=== PATIENT | female | born 1960 | race Caucasian/White ===

== ENCOUNTER 2016-07-20 13:04 | Emergency (ER) | payer OTHER ==
[~2016-07-20] VITALS: Ht 177.8 cm; Wt 86.2 kg
[2016-07-20] MEDS ORDERED: KETOROLAC TROMETHAMINE INJ 30 MG/ML VIAL IV ONE (13:30)
[2016-07-20] MEDS ORDERED: KETOROLAC TROMETHAMINE 15 MG/ML VIAL ONE (13:38)
[2016-07-20 13:40] LABS: BASOPHILS % (AUTO) 0.6 % (0.0-2.0); DIFF TOTAL % 100 %; EOSINOPHILS # (AUTO) 0.3 /CMM (0.0-0.7); EOSINOPHILS % (AUTO) 3.9 % (0.0-6.0); HEMATOCRIT 38 % (33-45); HEMOGLOBIN 12.8 g/dL (11.5-14.8); LYMPHOCYTES # (AUTO) 1.9 /CMM (0.8-4.8); LYMPHOCYTES % (AUTO) 29.6 % (20.0-44.0); MEAN CORPUSCULAR HEMOGLOBIN 30 PG (26.0-33.0); MEAN CORPUSCULAR HGB CONC 34 g/dl (31.0-36.0); MEAN CORPUSCULAR VOLUME 89 fL (82-100); MONOCYTES # (AUTO) 0.5 /CMM (0.1-1.30); MONOCYTES % (AUTO) 7.3 % (2.0-12.0); NEUTROPHILS # (AUTO) 3.8 /CMM (1.8-8.9); NEUTROPHILS % (AUTO) 58.6 % (43.0-81.0); PLATELET COUNT (AUTO) 223 /CMM (150-450); RED BLOOD CELL COUNT(AUTO) 4.26 MIL/uL (4.0-5.2); WHITE BLOOD COUNT (AUTO) 6.5 K/uL (4.3-11.0)
[2016-07-20 13:42] LABS: ADD UA MICROSCOPIC NO; KETONES,URINE NEGATIVE (NEGATIVE); LEUKOCYTE ESTERASE ,URINE NEGATIVE (NEGATIVE); PH,URINE 6.5 (5.0-8.0)
[2016-07-20 13:43] LABS: PREGNANCY TEST URINE QUAL NEGATIVE (NEGATIVE)
[2016-07-20 13:49] LABS: CALCIUM, SERUM 8.1 mg/dL (8.5-10.1); CREATININE 0.9 mg/dL (0.6-1.3); POTASSIUM 4.1 mmol/L (3.5-5.1)
[2016-07-20 13:55] LABS: ALBUMIN 3.5 g/dL (3.4-5.0); BILIRUBIN,DIRECT 0.1 mg/dL (0.0-0.2); BILIRUBIN,TOTAL 0.6 mg/dL (0.2-1.0); INDIRECT BILIRUBIN 0.5 mg/dL (0.0-1.1); TOTAL PROTEIN, SERUM 6.5 g/dL (6.4-8.2)
[2016-07-20 15:17] VITALS: BP 121/68
== END 2016-07-20 15:18 | disposition home or self-care (01) ==
LOC: ER 13:08
DX: R10.12 Left upper quadrant pain (principal); I10 Essential (primary) hypertension; G80.9 Cerebral palsy, unspecified; R16.0 Hepatomegaly, not elsewhere classified
CPT/HCPCS: 36415; 74176; 80048; 80076; 81001; 83690; 84703; 85025; 96374; 99285; A4606; J1885; Z7610; 81000-TC

== ENCOUNTER 2018-09-21 21:18 | Emergency (ER) | payer OTHER ==
[~2018-09-21] VITALS: Ht 177.8 cm; Wt 96.6 kg
--- NOTE | 2018-09-21 21:40 | NUR ---
PT BIBSELF COMPLAINING OF HEADACHE X 4 DAYS. PT RESPIRATIONS EVEN AND UNLABORED. PT AXO4. PT PUT ON SHOCK ABSORPTION FLOOR LAYER AND PULSE OX.
[2018-09-21] MEDS ORDERED: METOCLOPRAMIDE HCL 10 MG/2 ML VIAL ONE (21:47)
[2018-09-21] MEDS ORDERED: DEXAMETHASONE SOD PHOSPHATE 10 MG/ML VIAL ONE (21:47)
[2018-09-21] MEDS ORDERED: diphenhydrAMINE HCL 50 MG/ML VIAL ONE (21:47)
[2018-09-21] MEDS ORDERED: KETOROLAC TROMETHAMINE INJ 30 MG/ML VIAL ONE (21:47)
[2018-09-21] MEDS ORDERED: DEXAMETHASONE SOD PHOSPHATE 4 MG/ML VIAL IV ONE (22:00)
[2018-09-21] MEDS ORDERED: IV NS 0.9% 1,000 ML BAG IV ONE (22:00)
[2018-09-21] MEDS ORDERED: KETOROLAC TROMETHAMINE INJ 30 MG/ML VIAL IV ONE (22:00)
[2018-09-21] MEDS ORDERED: diphenhydrAMINE HCL 50 MG/ML VIAL IV ONE (22:00)
[2018-09-21] MEDS ORDERED: METOCLOPRAMIDE HCL 10 MG/2 ML VIAL IV ONE (22:00)
--- NOTE | 2018-09-21 22:18 | NUR ---
PT RESTING IN BED COMFORTABLY, NAD NOTED. WILL CONTINUE TO MONITOR.
[2018-09-21 23:05] VITALS: BP 134/77
--- NOTE | 2018-09-21 23:05 | NUR ---
Patient discharged to home in stable condition. Written and verbal after care instructions given. Patient verbalizes understanding of instruction. IV removed. Catheter intact and site benign. Pressure and 4x4 applied to site. No bleeding noted.
== END 2018-09-21 23:29 | disposition home or self-care (01) ==
LOC: ER 21:26
DX: R51 Headache (principal); I10 Essential (primary) hypertension; G80.9 Cerebral palsy, unspecified; R26.9 Unspecified abnormalities of gait and mobility
CPT/HCPCS: 96374; 96375; 99283; J1100; J1200; J1885; J2765; J7030

== ENCOUNTER 2018-10-01 23:25 | Emergency (ER) | payer OTHER ==
[~2018-10-01] VITALS: Ht 177.8 cm; Wt 90.7 kg
[2018-10-01 23:33] VITALS: BP 159/84
[2018-10-02] MEDS ORDERED: KETOROLAC TROMETHAMINE INJ 60 MG/2 ML VIAL IM ONE ×2
[2018-10-02] MEDS ORDERED: CARISOPRODOL 350 MG TABLET PO ONE
[2018-10-02] MEDS ORDERED: CARISOPRODOL 350 MG TABLET ONE
[2018-10-02] MEDS ORDERED: DEXAMETHASONE SOD PHOSPHATE 10 MG/ML VIAL ONE
[2018-10-02] MEDS ORDERED: DEXAMETHASONE SOD PHOSPHATE 4 MG/ML VIAL IM ONE
== END 2018-10-02 00:29 | disposition home or self-care (01) ==
LOC: ER 23:28
DX: M54.12 Radiculopathy, cervical region (principal); M62.838 Other muscle spasm; G80.9 Cerebral palsy, unspecified; I10 Essential (primary) hypertension; Z98.890 Other specified postprocedural states
CPT/HCPCS: 96372 ×2; 99283; J1100; J1885

== ENCOUNTER 2019-09-04 20:03 | Emergency (ER) | payer OTHER ==
[~2019-09-04] VITALS: Ht 175.3 cm; Wt 104.3 kg
[2019-09-04 20:07] VITALS: BP 120/83
--- NOTE | 2019-09-04 20:11 | NUR ---
PATIENT CAME TO ER BED 10 C/O RIGHT ANKLE PAIN. PATIENT TWISTED HER RIGHT ANKLE BY EVERSION AROUND 1500 OF TODAY. PAIN AGGRAVATED UPON PLACING WEIGHT ON ANKLES. AAOX4. NO SOB. BREATHING EVENLY AND UNLABORED. Addendum: 09/04/19 at 2027 by SONYA PEDAL PULSES BILATERALLY EQUAL AND STRONG.
--- NOTE | 2019-09-04 20:15 | NUR ---
SEEN AND EXAMINED BY
--- NOTE | 2019-09-04 20:17 | NUR ---
xray at bedside
[2019-09-04] MEDS ORDERED: HYDROCODONE/APAP 5/325MG 1 EACH TABLET ONE (20:59)
[2019-09-04] MEDS ORDERED: HYDROCODONE/APAP 5/325MG 1 EACH TABLET PO ONE (21:00)
--- NOTE | 2019-09-04 21:49 | NUR ---
Patient discharged to home in stable condition. Written and verbal after care instructions given. Patient verbalizes understanding of instruction. Prescipitions given.
== END 2019-09-04 23:02 | disposition home or self-care (01) ==
LOC: ER 20:06
DX: S93.491A Sprain of other ligament of right ankle, initial encounter (principal); I10 Essential (primary) hypertension; Z98.890 Other specified postprocedural states; Z79.899 Other long term (current) drug therapy; X58.XXXA Exposure to other specified factors, initial encounter; Y93.89 Activity, other specified; Y92.89 Other specified places as the place of occurrence of the external cause; Y99.8 Other external cause status
CPT/HCPCS: 73610-TC

== ENCOUNTER 2019-11-28 21:05 | Emergency (ER) | payer OTHER ==
[~2019-11-28] VITALS: Ht 175.3 cm; Wt 90.7 kg
[2019-11-28 22:20] VITALS: BP 162/100
[2019-11-28] MEDS ORDERED: IBUPROFEN 600 MG TABLET PO ONE ×2 (23:21→23:30)
== END 2019-11-29 00:21 | disposition home or self-care (01) ==
LOC: ER 21:05
DX: S93.491A Sprain of other ligament of right ankle, initial encounter (principal); I10 Essential (primary) hypertension; Z98.890 Other specified postprocedural states; X50.1XXA Overexertion from prolonged static or awkward postures, initial encounter; Y93.89 Activity, other specified; Y92.89 Other specified places as the place of occurrence of the external cause; Y99.8 Other external cause status
CPT/HCPCS: 73610-TC

== ENCOUNTER 2019-12-25 15:54 | Emergency (ER) | payer OTHER ==
[~2019-12-25] VITALS: Ht 175.3 cm; Wt 90.7 kg
--- NOTE | 2019-12-25 16:02 | NUR ---
CAME IN FOR BODY ACHE,CHEST CONGESTION AND HEADACHE X 3 DAYS, TO ER BED 8, HOOKED TO MONITOR, CHANGED TO HOSP GOWN, WARM BLANKET PROVIDED, PATIENT AAO x 4, BREATHING EVEN AND UNLABORED. AWAITING MD MENDOZA.
[2019-12-25] MEDS ORDERED: SULF500T8 MT (16:06)
[2019-12-25] MEDS ORDERED: ALBU8.5H8 INH (16:06)
[2019-12-25] MEDS ORDERED: METO-357 MT (16:06)
--- NOTE | 2019-12-25 16:28 | NUR ---
DR CHU AT BEDSIDE FOR EVAL
[2019-12-25 17:04] LABS: EOSINOPHILS % (AUTO) 0.4 % (0.0-6.0); HEMATOCRIT 41 % (33-45); LYMPHOCYTES # (AUTO) 1.1 /CMM (0.8-4.8); LYMPHOCYTES % (AUTO) 24.6 % (20.0-44.0); MEAN CORPUSCULAR HGB CONC 34 g/dl (31.0-36.0); MEAN CORPUSCULAR VOLUME 94 fL (82-100); MONOCYTES # (AUTO) 0.4 /CMM (0.1-1.30); NEUTROPHILS # (AUTO) 2.8 /CMM (1.8-8.9); PLATELET COUNT (AUTO) 167 /CMM (150-450); RED BLOOD CELL COUNT(AUTO) 4.39 MIL/uL (4.0-5.2); WHITE BLOOD COUNT (AUTO) 4.4 K/uL (4.3-11.0)
[2019-12-25 17:16] LABS: CALCIUM, SERUM 8.3 mg/dL (8.5-10.1)
[2019-12-25] MEDS ORDERED: KETOROLAC TROMETHAMINE 15 MG/ML VIAL ONE (17:50)
[2019-12-25] MEDS ORDERED: KETOROLAC TROMETHAMINE INJ 30 MG/ML VIAL IV ONE (18:00)
--- NOTE | 2019-12-25 18:11 | NUR ---
URINE SAMPLE COLLECTED AND SENT TO LAB
[2019-12-25 18:16] LABS: APPEARANCE,URINE Clear (CLEAR); BILIRUBIN,URINE Negative (NEGATIVE); BLOOD, URINE Negative Ery/uL (NEGATIVE); COLOR,URINE Yellow (YELLOW); KETONES,URINE Negative (NEGATIVE); LEUKOCYTE ESTERASE ,URINE Negative (NEGATIVE); NITRITE, URINE Negative (NEGATIVE); PH,URINE 5.5 (5.0-8.0); PROTEIN,URINE Trace mg/dl (NEGATIVE); UGLUCOSE Negative (NEGATIVE); UROBILINOGEN,URINE 0.2 EU/dL (0.2)
[2019-12-25 18:21] LABS: BACTERIA,URINE Few /HPF (None Seen); MUCUS,URINE Moderate /LPF (None Seen); RBC,URINE NONE SEEN /HPF (0-2); SQUAMOUS EPITHELIAL CELL,UR Many /HPF (None Seen); WBC,URINE NONE SEEN /HPF (0-3)
--- NOTE | 2019-12-25 18:22 | NUR ---
IV removed. Catheter intact and site benign. Pressure and 4x4 applied to site. No bleeding noted.Patient discharged to home in stable condition. Written and verbal after care instructions given. Patient verbalizes understanding of instruction.
[2019-12-25 18:23] VITALS: BP 147/74
== END 2019-12-25 18:23 | disposition home or self-care (01) ==
LOC: ER 15:56
DX: U07.1 COVID-19 (principal); G80.9 Cerebral palsy, unspecified; I10 Essential (primary) hypertension; Z79.899 Other long term (current) drug therapy; R35.0 Frequency of micturition; R09.89 Other specified symptoms and signs involving the circulatory and respiratory systems
CPT/HCPCS: 36415; 71045; 80048; 81001; 83880; 84145; 85025; 87040 ×2; 87426; 96374; 99284; J1885; 81000-TC

== ENCOUNTER 2020-08-23 16:03 | Emergency (ER) | payer MEDICAID, OTHER ==
[~2020-08-23] VITALS: Ht 175.3 cm; Wt 88.5 kg
[~2020-08-23 16:03] MED LIST: ALBU8.5H8 INH; METO-357 MT; SULF500T8 MT
[2020-08-23] MEDS ORDERED: HYDROCODONE/APAP 5/325MG TABLET ONE (16:24)
[2020-08-23] MEDS ORDERED: HYDROCODONE/APAP 5/325MG TABLET PO ONE (16:30)
--- NOTE | 2020-08-23 16:30 | NUR ---
BIBS W/ FIANCE FROM HOME TO ER BED 6. AAOX4. NOT IN RESP DISTRESS. AMBULATORY WITH LIMP. CAME IN FOR R KNEE PAAIN. PER PT, SHE WAS GOING THE THE STAIR, SLIPPED OFF AND CAUSING HER TO FALL DOWN HYPERBENDING HER R KNEE. PAIN IS 9/10 NOTED SWELLING. ROM IS LIMITED D/T PAIN. PEDAL PULSE IS APPRECIATED. MD WAS AT THE BEDSIDE FOR EVAL. ORDERS RECEIVED, NOTED AND CARRIED OUT
[2020-08-23] MEDS ORDERED: HYDR-4303 PO (17:15)
--- NOTE | 2020-08-23 17:27 | NUR ---
Patient discharged to home in stable condition. Written and verbal after care instructions given. Patient verbalizes understanding of instruction. Pt discharged with walker. gait training done. pt able to return demonstrate on walker use. Pt was assisted out of ER on a wheelchair
[2020-08-23 17:28] VITALS: BP 123/79
== END 2020-08-23 17:28 | disposition home or self-care (01) ==
LOC: ER 16:06
DX: S83.8X1A Sprain of other specified parts of right knee, initial encounter (principal); I10 Essential (primary) hypertension; F10.10 Alcohol abuse, uncomplicated; Y90.9 Presence of alcohol in blood, level not specified; Z98.890 Other specified postprocedural states; Z79.899 Other long term (current) drug therapy; W10.8XXA Fall (on) (from) other stairs and steps, initial encounter; Y93.89 Activity, other specified; Y92.89 Other specified places as the place of occurrence of the external cause; Y99.8 Other external cause status
CPT/HCPCS: 73562

== ENCOUNTER 2022-02-14 19:15 | Emergency (ER) | payer MEDICAID, OTHER ==
[~2022-02-14] VITALS: Ht 175.3 cm; Wt 93.0 kg
[~2022-02-14 19:15] MED LIST changes: +HYDR-4303 PO
--- NOTE | 2022-02-14 19:21 | NUR ---
supriya from [facility], c/o high blood pressure 190's sbp in triage pt called 911 herself due to concern for high bp. DENIES H/A. PT A/OX4. TOLERATING R/A WELL WITH NO SOB. CONNECTED PT TO POX AND MONITOR. SAFETY MEASURES IN PLACE.
--- NOTE | 2022-02-14 19:30 | NUR ---
RAC #20G S/L BLOOD COLLECTED AND SENT TO LAB
--- NOTE | 2022-02-14 19:49 | NUR ---
URINE COLLECTED AND SENT TO LAB
--- NOTE | 2022-02-14 20:09 | NUR ---
EMT AT PT'S BEDSIDE FOR EKG
[2022-02-14] MEDS ORDERED: HYDROCODONE/APAP 5/325MG TABLET ONE (20:13)
[2022-02-14] MEDS ORDERED: AMLODIPINE BESYLATE 10 MG TABLET ONE (20:13)
[2022-02-14] MEDS ORDERED: AMLODIPINE BESYLATE 5 MG TABLET PO ONE (20:30)
[2022-02-14] MEDS ORDERED: HYDROCODONE/APAP 5/325MG TABLET PO ONE (20:30)
--- NOTE | 2022-02-14 22:32 | NUR ---
PT WILL BE TRANSPORTED BACK TO FACILITY AT 0100 VIA [facility].
[2022-02-14] MEDS ORDERED: CLONIDINE HCL 0.1 MG TABLET ONE (23:09)
[2022-02-14] MEDS ORDERED: CLONIDINE HCL 0.1 MG TABLET PO ONE (23:30)
--- NOTE | 2022-02-15 00:17 | NUR ---
REPORT GIVEN TO VENUS TAYLOR FROM [facility]
[2022-02-15 00:59] VITALS: BP 133/67
--- NOTE | 2022-02-15 01:06 | NUR ---
REPORT GIVEN TO [facility] FOR PT TO D/C TO [facility]. IV removed. Catheter intact and site benign. Pressure and 4x4 applied to site. No bleeding noted. VSS
--- NOTE | 2022-02-15 01:16 | NUR ---
Patient discharged to [facility] in stable condition via [facility]. Written and verbal after care instructions given. Patient verbalizes understanding of instruction.
== END 2022-02-15 01:35 ==
LOC: ER 19:16
DX: I10 Essential (primary) hypertension (principal); Z98.890 Other specified postprocedural states; Z79.899 Other long term (current) drug therapy

== ENCOUNTER 2022-02-15 01:41 | Emergency (ER) | payer OTHER | END 2022-02-15 01:59 | disposition left against medical advice (07) | LOC: ER 01:42 | DX: Z53.21 Procedure and treatment not carried out due to patient leaving prior to being seen by health care provider (principal) ==

== ENCOUNTER 2022-06-27 22:22 | Emergency (ER) | payer OTHER ==
[~2022-06-27] VITALS: Ht 175.3 cm; Wt 90.7 kg
--- NOTE | 2022-06-27 22:57 | NUR ---
SEEN BY DR SCHROEDER AT BEDSIDE
[2022-06-27] MEDS ORDERED: HYDR-4077 PO (23:08)
[2022-06-27] MEDS ORDERED: hydrALAZINE HCL 50 MG TABLET ONE (23:17)
[2022-06-27 23:21] VITALS: BP 162/101
[2022-06-27] MEDS ORDERED: hydrALAZINE HCL 25 MG TABLET PO ONE (23:30)
--- NOTE | 2022-06-27 23:50 | NUR ---
MELANIE CALLED TO [employer] PT [phone]
--- NOTE | 2022-06-28 00:17 | NUR ---
Patient discharged to home in stable condition. Written and verbal after care instructions given. Patient verbalizes understanding of instruction.
--- NOTE | 2022-06-28 00:17 | NUR ---
LATEST BP 144/77mmhg. PATIENT MADE AWARE.
== END 2022-06-28 02:21 | disposition home or self-care (01) ==
LOC: ER 22:23
DX: I10 Essential (primary) hypertension (principal); Z76.0 Encounter for issue of repeat prescription; G80.9 Cerebral palsy, unspecified; Z98.890 Other specified postprocedural states; Z79.899 Other long term (current) drug therapy

== ENCOUNTER 2024-01-15 00:28 | Emergency (ER) | payer OTHER ==
[~2024-01-15] VITALS: Ht 175.3 cm; Wt 95.3 kg
[~2024-01-15 00:28] MED LIST changes: +HYDR-4077 PO
[2024-01-15 02:13] VITALS: O2SAT 96
[2024-01-15] MEDS ORDERED: IBUP-1957 PO (02:18)
[2024-01-15] MEDS ORDERED: CYCL15CA23 PO (02:18)
[2024-01-15] MEDS ORDERED: PRED50TA PO (02:18)
[2024-01-15] MEDS ORDERED: IBUPROFEN 400 MG TABLET ONE (02:19)
[2024-01-15] MEDS ORDERED: dexaMETHasone SOD PHOSPHATE 1 ML ONE (02:19)
[2024-01-15] MEDS: dexaMETHasone SOD PHOSPHATE 4 MG/ML VIAL IM ONE (02:25)
[2024-01-15 02:26] VITALS: BP 108/66; TEMP 98; O2SAT 96
[2024-01-15] MEDS: IBUPROFEN 400 MG TABLET PO ONE (02:26)
== END 2024-01-15 02:27 | disposition home or self-care (01) ==
LOC: ER 00:30
DX: M54.41 Lumbago with sciatica, right side (principal); I10 Essential (primary) hypertension; G80.9 Cerebral palsy, unspecified; Z79.1 Long term (current) use of non-steroidal anti-inflammatories (NSAID); Z79.891 Long term (current) use of opiate analgesic; Z79.51 Long term (current) use of inhaled steroids; Z79.899 Other long term (current) drug therapy
CPT/HCPCS: 99283; 96372; J1100

== ENCOUNTER 2024-01-28 22:55 | Emergency (ER) | payer OTHER ==
[~2024-01-28] VITALS: Ht 175.3 cm; Wt 90.7 kg
[~2024-01-28 22:55] MED LIST changes: +CYCL15CA23 PO; +IBUP-1957 PO; +PRED50TA PO
[2024-01-29] MEDS ORDERED: IBUP-1953 PO (01:15)
[2024-01-29] MEDS ORDERED: PRED50TA PO (01:15)
[2024-01-29] MEDS ORDERED: CYCL10TA9 PO (01:15)
[2024-01-29] MEDS ORDERED: dexaMETHasone SOD PHOSPHATE 1 ML ONE (01:17)
[2024-01-29] MEDS: IBUPROFEN 600 MG TABLET PO ONE (01:18)
[2024-01-29] MEDS: dexaMETHasone SOD PHOSPHATE 10 MG/ML VIAL IM ONE (01:18)
[2024-01-29 01:35] VITALS: BP 125/61; TEMP 98.1; O2SAT 99
== END 2024-01-29 01:35 | disposition home or self-care (01) ==
LOC: ER 22:58
DX: G89.29 Other chronic pain (principal); M54.59 Other low back pain; M51.36 Other intervertebral disc degeneration, lumbar region; G80.9 Cerebral palsy, unspecified; I10 Essential (primary) hypertension; Z87.39 Personal history of other diseases of the musculoskeletal system and connective tissue
CPT/HCPCS: 99283; 96372; J1100